=== PATIENT | male | born 1965 | race African-American/Black ===

== ENCOUNTER 2021-03-27 20:56 | Emergency (ER) | payer SELFPAY ==
--- NOTE | 2021-03-27 21:17 | EDM.PDOC ---
ED HPI GENERAL MEDICAL PROBLEM - General Stated Complaint: COUGH,CHILLS Time Seen by Provider: 03/27/21 21:13 Source of Information: Reports: Patient History Limitations: Reports: No Limitations - History of Present Illness INITIAL COMMENTS - FREE TEXT/NARRATIVE: 56-year-old male presents with viral symptoms since yesterday. He admits to feeling feverish and chills cough, malaise, myalgia. ROS: A 10-point review of systems, other than pertinent positives and negatives as stated per HPI, is otherwise negative Past medical history: No additional pertinent history Past Surgical history: No additional pertinent history Social history: No additional pertinent history Family history: No additional pertinent history PHYSICAL EXAM General: AOx4, GCS = 15, No distress HEENT: dry mucous membrane Neck: supple, no meningismus, no Kernig or Brudzinski Cardiac: S1S2 RRR Respiratory: CTAB, no crackles or rales, no wheezing Abdomen: Soft, nontender, no rebound or guarding, nondistended, no pulsatile mass. Back: nontender Musculoskeletal: NVI distally, no deformity Neuro: No focal deficits, CN 2 - 12 WNL. Bilateral Generalized Pain Score (Numeric/FACES): 9 - Related Data Allergies Allergy/AdvReac Type Severity Reaction Status Date / Time No Known Allergies Allergy Verified 03/27/21 21:30 Home Meds: Home Meds . [No Known Home Meds] 03/27/21 [History] ED ROS GENERAL - Review of Systems Review Of Systems: See Below (see dictation) ED EXAM, GENERAL - Physical Exam Exam: See Below (see dictation) Course - Vital Signs Last Recorded V/S: Last Vital Signs Temp 97.8 F 03/27/21 21:30 Pulse 86 03/27/21 21:30 Resp 17 03/27/21 21:30 BP 125/80 03/27/21 21:30 Pulse Ox 98 03/27/21 21:30 - Orders/Labs/Meds Labs: Laboratory Tests 03/27/21 Range/Units 21:15 SARS-CoV-2 RNA (KRYSTAL) POSITIVE H (NEGATIVE) - Re-Assessments/Exams Free Text/Narrative Re-Assessment/Exam: 03/27/21 21:21 he is currently stable for discharge. I performed a repeat exam and did not appreciate new abnormal findings. Patient exhibits normal vital signs and has a normal gait on road test. I advised the patient to return to the ER for reevaluation if symptoms worsened, including fever, worsening pain, or any other worrisome symptoms. I instructed the patient to follow up with their PCP within 2-3 days. MEDICAL DECISION MAKING: I reviewed the patients past medical records, lab and radiographic findings. I discussed the case with the patient. My differential diagnosis included: Influenza, viral URI, Covid. Patient was tested positive for Covid. This patient was evaluated for the symptoms described in the history of present illness. They were evaluated in the context of the global COVID-19 pandemic, which necessitated consideration that the patient might be at risk for infection with the SARS-CoV-2 virus that causes COVID-19. Institutional protocols and algorithms that pertain to the evaluation of patients at risk for COVID-19 are in a state of rapid change based on information released by regulatory bodies including the CDC and federal and state organizations. These policies and algorithms were followed during the patient's care. I wore full PPE, N95, face shield, gown and gloves throughout my evaluation and care of this patient. I recommended home isolation. given home isolation instructions. The patient is well appearing, not in respiratory distress, not hypoxic, no tachyneia, no retractions. I instructed patient to return immediately for worsening symptoms, sob, chest pain, lightheadedness or other concerns. I instructed him to purchase a pulse oximeter and utilize it whenever he feels short of breath, and to return if pulse ox reading less than 90%. Patient voiced understanding and questions answered. Departure - Departure Time of Disposition: 22:12 Disposition: Home, Self-Care 01 Condition: Good Clinical Impression: COVID-19 - Discharge Information *PRESCRIPTION DRUG MONITORING PROGRAM REVIEWED*: Not Applicable *COPY OF PRESCRIPTION DRUG MONITORING REPORT IN PATIENT ARIA: Not Applicable Instructions: COVID-19 Vaccine Information, COVID-19, COVID-19: What to Do If You Are Sick- [facility] (09/01/2020) Referrals: PCP,None [Primary Care Provider] - Forms: ED Department Discharge Additional Instructions: The need for follow-up, as well as the timing and circumstances, are variable depending upon the specifics of your emergency department visit. If you don't have a primary care physician on staff, we will provide you with a referral. We always advise you to contact your personal physician following an emergency department visit to inform them of the circumstance of the visit and for follow-up with them and/or the need for any referrals to a consulting specialist. The emergency department will also refer you to a specialist when appropriate. This referral assures that you have the opportunity for follow-up care with a specialist. All of these measure are taken in an effort to provide you with optimal care, which includes your follow-up. Under all circumstances we always encourage you to contact your private physician who remains a resource for coordinating your care. When calling for follow-up care, please make the office aware that this follow-up is from your recent emergency room visit. If for any reason you are refused follow-up, please contact the [facility] Emergency Department at and asked to speak to the emergency department charge nurse. If you do not have a primary care doctor, please follow up with the clinics below within 3-5 days. [facility] [address] [place] [id number] [address] Sepsis Event Note (ED) - Focused Exam Vital Signs: Vital Signs Temp Pulse Resp BP Pulse Ox 03/27/21 21:30 97.8 F 86 17 125/80 98
--- NOTE | 2021-03-27 21:54 | CR ---
Indication: Chest pain. Technique: AP portable view of the chest. Comparison: None Findings: The heart is normal in size. The lungs are clear. No infiltrate, pleural effusion, or pneumothorax is identified. Impression: No acute cardiopulmonary process Dictated by Phuong Thurston MD @ 03/27/2021 9:53:49 PM (Electronically Signed)
== END 2021-03-27 22:30 | disposition home or self-care (01) ==
LOC: MW.ED 20:56
DX: U07.1 COVID-19 (principal)
CPT/HCPCS: 71045; 71045-26; 99283-25; U0002

== ENCOUNTER 2023-10-14 10:24 | Emergency (ER) | payer BC ==
[2023-10-14] MEDS: Orphenadrine 60 MG/2 ML Inj IM ONE (10:41)
[2023-10-14] MEDS: Ketorolac 30 MG/ML SDV IM ONE (10:41)
[2023-10-14] MEDS: Lidocaine 4% 1 each Patch TOP STA (10:42)
== END 2023-10-14 11:31 | disposition home or self-care (01) ==
LOC: MW.ED 10:24
DX: M54.9 Dorsalgia, unspecified (principal); Z75.8 Other problems related to medical facilities and other health care; Z79.899 Other long term (current) drug therapy
CPT/HCPCS: 96372; 99283; A9270; J1885; J2360